=== PATIENT | male | born 1955 | race African-American/Black ===

== ENCOUNTER 2016-10-06 08:18 | Inpatient (IN) | payer OTHER ==
[~2016-10-06] VITALS: Ht 180.3 cm; Wt 98.9 kg
[~2016-10-06 08:18] MED LIST: AMLODIPINE BES2.5 MG PO; AMLODIPINE BESY10 MG; FLEXERIL10 MG PO; Flagyl PO; Flora-Q,Risaquad PO; IBUPROFEN200 M1 PO; LISINOPRIL40 MG; LISINOPRIL40 MG PO; MEDROL DOSEPAK4 MG PO; PERCOCET 10/1 TABLE1 PO; PERCOCET 5/31 TABLET PO; Questran PO
[2016-10-06 09:04] LABS: ADD MIUA? YES; BILIRUBIN NEGATIVE; BLOOD SMALL; COLOR YELLOW ((YELLOW)); GLUCOSE (STRIP) NEGATIVE; KETONES NEGATIVE; LEUKOCYTES SMALL; NITRITE NEGATIVE; PROTEIN (STRIP) NEGATIVE; SPECIFIC GRAVITY 1.016 (1.000-1.030); UROBILINOGEN 0.2 MG/DL (0.2-1.0)
[2016-10-06 09:12] LABS: BACTERIA NONE SEEN /HPF; EPITHELIAL CELLS RARE /HPF; MUCUS TRACE /LPF; RED BLOOD CELLS 0-5 /HPF (0-5); UCUL ADDED? NO; WHITE BLOOD CELLS 15-20 /HPF (0-5)
[2016-10-06 10:58] LABS: BASOPHIL COUNT 0.1 K/uL (0-0.1); EOSINOPHIL (%) 0.1 % (0-5); HEMATOCRIT 39.2 % (38.0-50.0); IMMATURE GRANULOCYTE (%) 0.8 % (0.0-0.7); IMMATURE GRANULOCYTE COUNT 0.2 K/uL; INSTRUMENT ABS NEUTROPHIL CT 21.8 K/uL; LYMPHOCYTE COUNT 0.9 K/uL (1.0-2.8); MCH 31.4 PG (29.0-34.0); MCHC 33.7 G/DL (30.0-36.0); MCV 93.3 FL (86-99); MEAN PLAT.VOLUME 9.3 uM^3 (9.0-12.4); MONOCYTE (%) 5.2 % (3-12); MONOCYTE COUNT 1.3 K/uL (0-0.8); NEUTROPHIL COUNT 21.8 K/uL (1.8-6.4); PLATELET COUNT 301 K/uL (156-360); RBC DIS.WIDTH-CV 12.5 % (11.8-14.6); RBC DIS.WIDTH-SD 42.9 % (39-53); WHITE BLOOD COUNT 24.2 K/uL (4.1-10.2)
[2016-10-06 11:07] LABS: CHLORIDE 107 mEq/L (99-109); SODIUM 138 mEq/L (136-147)
[2016-10-06 11:10] LABS: GLUCOSE 105 mg/dL (70-99)
[2016-10-06 11:11] LABS: ANION GAP 7 MEQ/L (2-14)
[2016-10-06 11:12] LABS: TOTAL BILIRUBIN 0.6 mg/dL (0.0-1.0)
[2016-10-06 11:13] LABS: ALKALINE PHOSPHATASE 76 IU/L (3-129); GFR ESTIMATE (CALCULATED) > 59 mL/min/
[2016-10-06 11:14] LABS: UREA NITROGEN (BUN) 15 mg/dL (9-23)
[2016-10-06] MEDS ORDERED: LISINOPRIL40 MG PO (13:45)
[2016-10-06] MEDS ORDERED: AMLODIPINE BESY10 MG PO (13:46)
[2016-10-06] MEDS ORDERED: IBUPROFEN800 MG PO (13:46)
[2016-10-06] MEDS ORDERED: PERCOCET 5/31 TABLET PO (13:47)
[2016-10-06] MEDS ORDERED: VIAGRA100 MG PO (13:47)
[2016-10-06 18:00] VITALS: BP 184/76
[2016-10-06 19:29] VITALS: BP 173/75
[2016-10-06 23:27] VITALS: BP 151/68
[2016-10-07 03:30] VITALS: BP 156/72
[2016-10-07 07:19] LABS: BASOPHIL COUNT 0.1 K/uL (0-0.1); EOSINOPHIL (%) 0.9 % (0-5); EOSINOPHIL COUNT 0.2 K/uL (0-0.3); HEMATOCRIT 36.4 % (38.0-50.0); IMMATURE GRANULOCYTE (%) 0.7 % (0.0-0.7); IMMATURE GRANULOCYTE COUNT 0.2 K/uL; INSTRUMENT ABS NEUTROPHIL CT 20.6 K/uL; LYMPHOCYTE COUNT 1.4 K/uL (1.0-2.8); MCH 31.8 PG (29.0-34.0); MCHC 33.8 G/DL (30.0-36.0); MCV 94.1 FL (86-99); MEAN PLAT.VOLUME 9.5 uM^3 (9.0-12.4); MONOCYTE (%) 7.1 % (3-12); MONOCYTE COUNT 1.7 K/uL (0-0.8); NEUTROPHIL (%) 85.2 % (45-76); NEUTROPHIL COUNT 20.6 K/uL (1.8-6.4); PLATELET COUNT 291 K/uL (156-360); RBC DIS.WIDTH-CV 12.4 % (11.8-14.6); RBC DIS.WIDTH-SD 42.8 % (39-53); RED BLOOD COUNT 3.87 M/uL (4.00-5.50); WHITE BLOOD COUNT 24.2 K/uL (4.1-10.2)
[2016-10-07 07:46] LABS: ALKALINE PHOSPHATASE 68 IU/L (3-129); ANION GAP 9 MEQ/L (2-14); CHLORIDE 103 MEQ/L (99-109); GFR ESTIMATE (CALCULATED) > 59 mL/min/; GLUCOSE 90 mg/dL (70-99); POTASSIUM 3.6 MEQ/L (3.7-5.4); SAMPLE HEMOLYSIS CHECK 0; SAMPLE ICTERIC CHECK 0; SAMPLE LIPEMIA CHECK 0; SODIUM 136 MEQ/L (136-147); TOTAL BILIRUBIN 0.7 MG/DL (0.0-1.0); UREA NITROGEN (BUN) 12 mg/dL (9-23)
[2016-10-07 08:36] VITALS: BP 148/71
[2016-10-07 12:02] VITALS: BP 160/68
[2016-10-07 15:42] VITALS: BP 140/70
[2016-10-07 23:48] VITALS: BP 144/70
[2016-10-08 07:32] LABS: BASOPHIL COUNT 0.1 K/uL (0-0.1); EOSINOPHIL COUNT 0.2 K/uL (0-0.3); IMMATURE GRANULOCYTE (%) 0.5 % (0.0-0.7); IMMATURE GRANULOCYTE COUNT 0.1 K/uL; INSTRUMENT ABS NEUTROPHIL CT 13.5 K/uL; MCH 31.2 PG (29.0-34.0); MCHC 33.7 G/DL (30.0-36.0); MCV 92.6 FL (86-99); MEAN PLAT.VOLUME 9.5 uM^3 (9.0-12.4); MONOCYTE (%) 8.4 % (3-12); MONOCYTE COUNT 1.4 K/uL (0-0.8); NEUTROPHIL (%) 83.4 % (45-76); NEUTROPHIL COUNT 13.5 K/uL (1.8-6.4); PLATELET COUNT 277 K/uL (156-360); RBC DIS.WIDTH-CV 12.2 % (11.8-14.6); RBC DIS.WIDTH-SD 41.9 % (39-53); RED BLOOD COUNT 3.78 M/uL (4.00-5.50); WHITE BLOOD COUNT 16.2 K/uL (4.1-10.2)
[2016-10-08 08:05] LABS: ALKALINE PHOSPHATASE 86 IU/L (3-129); ANION GAP 9 MEQ/L (2-14); CHLORIDE 101 MEQ/L (99-109); GFR ESTIMATE (CALCULATED) > 59 mL/min/; GLUCOSE 94 mg/dL (70-99); POTASSIUM 3.7 MEQ/L (3.7-5.4); SAMPLE HEMOLYSIS CHECK 0; SAMPLE ICTERIC CHECK 0; SAMPLE LIPEMIA CHECK 0; SODIUM 136 MEQ/L (136-147); TOTAL BILIRUBIN 0.6 MG/DL (0.0-1.0); UREA NITROGEN (BUN) 13 mg/dL (9-23)
[2016-10-08 08:19] VITALS: BP 172/77
[2016-10-08 15:30] VITALS: BP 124/60
[2016-10-08 20:02] VITALS: BP 132/60
[2016-10-09 00:10] VITALS: BP 126/60
[2016-10-09 04:20] VITALS: BP 119/56
[2016-10-09] MEDS ORDERED: PERCOCET 5/31 TABLET PO ×2 (06:51→06:53)
[2016-10-09] MEDS ORDERED: LEVAQUIN500 MG PO (06:53)
[2016-10-09] MEDS ORDERED: BACTRIM,SEPT1 TABLET PO (06:53)
[2016-10-09 07:06] LABS: EOSINOPHIL (%) 3.9 % (0-5); EOSINOPHIL COUNT 0.3 K/uL (0-0.3); HEMATOCRIT 32.5 % (38.0-50.0); IMMATURE GRANULOCYTE (%) 0.6 % (0.0-0.7); IMMATURE GRANULOCYTE COUNT 0.1 K/uL; INSTRUMENT ABS NEUTROPHIL CT 6.3 K/uL; LYMPHOCYTE COUNT 0.9 K/uL (1.0-2.8); MCH 32.2 PG (29.0-34.0); MCHC 34.5 G/DL (30.0-36.0); MCV 93.4 FL (86-99); MEAN PLAT.VOLUME 9.9 uM^3 (9.0-12.4); MONOCYTE COUNT 1.1 K/uL (0-0.8); NEUTROPHIL (%) 71.9 % (45-76); NEUTROPHIL COUNT 6.3 K/uL (1.8-6.4); PLATELET COUNT 261 K/uL (156-360); RBC DIS.WIDTH-CV 12.3 % (11.8-14.6); RBC DIS.WIDTH-SD 42.2 % (39-53); RED BLOOD COUNT 3.48 M/uL (4.00-5.50); WHITE BLOOD COUNT 8.7 K/uL (4.1-10.2)
[2016-10-09 08:00] VITALS: BP 137/62
== END 2016-10-09 10:49 | disposition home or self-care (01) | DRG 728 ==
LOC: EME 08:18 → EDOF 15:43 → 2EAST 15:43
PROVIDERS: Emergency Medicine; Nurse Practitioner Adult Health; Physician Assistant Medical
DX: N45.3 Epididymo-orchitis (principal); I10 Essential (primary) hypertension; N43.3 Hydrocele, unspecified; N39.0 Urinary tract infection, site not specified; R50.9 Fever, unspecified; B96.20 Unspecified Escherichia coli [E. coli] as the cause of diseases classified elsewhere; G47.30 Sleep apnea, unspecified; M46.92 Unspecified inflammatory spondylopathy, cervical region; Z68.30 Body mass index [BMI] 30.0-30.9, adult; Z87.891 Personal history of nicotine dependence
CPT/HCPCS: 74176; 76870; 80053; 81003; 83605; 85025; 87040; 87077; 87086; 87186; 99281; 99285; J1170; J1650; J1956; J2060; J2270; J2405; J3010; J7030; J7120